=== PATIENT | female | born 1940 | race Caucasian/White ===

== ENCOUNTER 2016-12-24 07:41 | Outpatient (CLI) | payer MEDICARE, BC ==
[2016-12-24 08:27] LABS: #Basophils 0.1 thou/uL (0.0-0.2); #Eosinphils 0.2 thou/uL (0.0-0.7); #Monocytes 0.5 thou/uL (0.11-0.59); #Neutrophils 5.8 thou/uL (1.40-6.50); %Basophils 1.1 % (0.0-1.0); %Eosinophils 1.9 % (0.0-10.0); %Lymphocytes 23.3 % (21.0-51.0); %Monocytes 5.9 % (0.0-10.0); %Neutrophils 67.9 % (42.0-75.0); Hemoglobin 13.3 g/dL (12.0-16.0); Mean Corpuscular HGB CONC 34.1 g/dL (32.0-36.0); Mean Corpuscular Volume 93.7 fl (81.0-99.0); Mean Platelet Volume 7.6 fL (7.4-10.4); Platelet Count 405 thou/uL (130-400); RBC Distribution Width 10.4 % (11.5-14.5); Red Blood Cell (RBC) Count 4.15 mill/uL (4.20-5.40); White Blood Cell (WBC) Count 8.5 thou/uL (4.8-10.8)
[2016-12-24 08:48] LABS: ALT (SGPT) Less than 6 U/L (0-55); AST (SGOT) 14 U/L (5-34); Albumin 4.2 g/dL (3.4-4.8); Alkaline Phosphatase 62 U/L (40-150); Anion Gap 14 mmol/L (10-20); BUN (Urea Nitrogen) 10 mg/dL (9.8-20.1); Bilirubin, Direct 0.2 mg/dL (0.1-0.3); Bilirubin, Total 0.5 mg/dL (0.2-1.2); Calc. Creatinine Clearance 0 mL/min (70-130); Calcium 9.3 mg/dL (7.8-10.44); Carbon Dioxide 23 mmol/L (23-31); Cardiac Risk 3.1 (Less than 4.5); Chloride 102 mmol/L (98-107); Cholesterol 147 mg/dL (< 200 Desired); Estimated GFR-MDRD 72; Glucose 109 mg/dL (83-110); HDL Cholesterol 48 mg/dL (>60 Neg Risk); LDL Cholesterol, Calculated 78 mg/dL; Potassium 4.3 mmol/L (3.5-5.1); Protein, Total 6.5 g/dL (5.8-8.1); Sodium 135 mmol/L (136-145); Triglycerides 105 mg/dL (Less than 150)
== END 2016-12-24 07:42 ==
LOC: MADLABBHPM 07:41
PROVIDERS: ATTEND Family Medicine
DX: E78.00 Pure hypercholesterolemia, unspecified (principal); I69.90 Unspecified sequelae of unspecified cerebrovascular disease; I10 Essential (primary) hypertension
CPT/HCPCS: 36415; 80048; 80061; 80076; 85025

== ENCOUNTER 2017-09-29 08:43 | Emergency (ER) | payer MEDICARE, BC ==
--- NOTE | 2017-09-29 10:15 | CT ---
CT BRAIN WITHOUT CONTRAST: Indication: History of head injury. Comparison: None. FINDINGS: There is a left frontal scalp contusion. There are areas of encephalomalacia involving the left frontal lobe and left parietal lobe in a left MCA distribution. There is an additional area of encephalomalacia involving the anterior superior asp ect of the right frontal lobe. There is mild small vessel white matter ischemic change. There is ex v acuo dilatation of the left parietal ventricle. Septum pellucidum and third ventricle are midline. No definite acute hemorrhage or hydrocephalus is present. IMPRESSION: 1. Left frontal scalp contusion. 2. No acute intracranial abnormality. 3. 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 There is an additional area of encephalomalacia involving the anterior superior aspect of the right fronta l lobe. POS: [facility]
[2017-09-29 10:29] LABS: Bilirubin Negative (Negative); Blood, Urine Trace (Negative); Clarity Clear (Clear); Glucose, Urine (Dipstick) Negative (Negative); Leukocyte Trace (Negative); Nitrite Negative (Negative); Protein, Urine (Dipstick) 30 mg/dL (Neg-Trace); Specific Gravity, Urine 1.025 (1.005-1.030); Urobilinogen 0.2 mg/dL (0.2-1.0); pH, Urine 5.5 (5.0-9.0)
[2017-09-29 10:38] LABS: Bacteria/HPF Rare-Few HPF (None Seen); RBC/HPF 0-3 HPF (0-3); WBC/HPF 0-3 HPF (0-3)
[2017-09-29 10:47] LABS: ALT (SGPT) Less than 7 U/L (8-55); AST (SGOT) 15 U/L (5-34); Albumin 4.1 g/dL (3.4-4.8); Alkaline Phosphatase 73 U/L (40-150); Anion Gap 15 mmol/L (10-20); BUN (Urea Nitrogen) 17 mg/dL (9.8-20.1); Bilirubin, Total 0.5 mg/dL (0.2-1.2); Calc. Creatinine Clearance 0 mL/min (70-130); Calcium 9.3 mg/dL (7.8-10.44); Carbon Dioxide 23 mmol/L (23-31); Chloride 105 mmol/L (98-107); Estimated GFR-MDRD 79; Globulin 2.9 g/dL (2.4-3.5); Glucose 106 mg/dL (83-110); Potassium 4.7 mmol/L (3.5-5.1); Sodium 138 mmol/L (136-145)
[2017-09-29 10:51] LABS: PTT 23.6 SEC (22.9-36.1); Prothrombin Time 12.9 SEC (12.0-14.7)
[2017-09-29 10:56] LABS: CKMB 2.4 ng/mL (0-6.6); Magnesium 2.1 mg/dL (1.6-2.6); Troponin I Less than 0.010 ng/mL (< 0.028)
== END 2017-09-29 11:30 | disposition home or self-care (01) ==
LOC: MADERS 08:43
DX: S00.83XA Contusion of other part of head, initial encounter (principal); I10 Essential (primary) hypertension; G20 Parkinson's disease; Z86.73 Personal history of transient ischemic attack (TIA), and cerebral infarction without residual deficits; Z87.891 Personal history of nicotine dependence; Z79.899 Other long term (current) drug therapy; Z79.82 Long term (current) use of aspirin; W18.30XA Fall on same level, unspecified, initial encounter
CPT/HCPCS: 36416; 70450; 80053; 81003; 81015; 82553; 83735; 84484; 85610; 85730; 93005

== ENCOUNTER 2021-07-22 09:54 | Emergency (ER) | payer MEDICARE, BC ==
[2021-07-22 10:34] LABS: #Basophils 0.1 thou/uL (0.0-0.2); #Eosinphils 0.1 thou/uL (0.0-0.7); #Lymphocytes 1.8 thou/uL (1.20-3.40); #Monocytes 0.4 thou/uL (0.11-0.59); %Basophils 1.2 % (0.0-1.0); %Eosinophils 2.2 % (0.0-10.0); %Lymphocytes 27.6 % (21.0-51.0); %Monocytes 6.3 % (0.0-10.0); %Neutrophils 62.7 % (42.0-75.0); Hemoglobin 13.8 g/dL (12.0-16.0); Mean Corpuscular HGB CONC 32.7 g/dL (32.0-36.0); Mean Corpuscular Hemoglobin 29.4 pg (27.0-31.0); Mean Corpuscular Volume 90.1 fL (78.0-98.0); Mean Platelet Volume 8.1 fL (7.4-10.4); Platelet Count 354 thou/uL (130-400); RBC Distribution Width 11.4 % (11.5-14.5); Red Blood Cell (RBC) Count 4.69 mill/uL (4.20-5.40); White Blood Cell (WBC) Count 6.3 thou/uL (4.8-10.8)
[2021-07-22 10:47] LABS: ALT (SGPT) 11 U/L (8-55); AST (SGOT) 13 U/L (5-34); Albumin 3.8 g/dL (3.4-4.8); Alkaline Phosphatase 67 U/L (40-110); Anion Gap 11 mmol/L (10-20); BUN (Urea Nitrogen) 17 mg/dL (9.8-20.1); Bilirubin, Total 0.5 mg/dL (0.2-1.2); Calc. Creatinine Clearance 0 mL/min (70-130); Calcium 9.6 mg/dL (7.8-10.44); Carbon Dioxide 26 mmol/L (23-31); Chloride 107 mmol/L (98-107); Globulin 2.7 g/dL (2.4-3.5); Glucose 95 mg/dL (83-110); Potassium 4.1 mmol/L (3.5-5.1); Protein, Total 6.5 g/dL (5.8-8.1); Sodium 140 mmol/L (136-145)
== END 2021-07-22 12:15 | disposition home or self-care (01) ==
LOC: MADERS 09:54
DX: S73.101A Unspecified sprain of right hip, initial encounter (principal); R07.9 Chest pain, unspecified; R26.9 Unspecified abnormalities of gait and mobility; Z86.73 Personal history of transient ischemic attack (TIA), and cerebral infarction without residual deficits; Z79.82 Long term (current) use of aspirin; Z79.899 Other long term (current) drug therapy; W19.XXXA Unspecified fall, initial encounter
CPT/HCPCS: 71045; 72192; 80053; 85025

== ENCOUNTER 2021-10-23 08:39 | Emergency (ER) | payer MEDICARE, BC | END 2021-10-23 10:20 | disposition home or self-care (01) | LOC: MADERS 08:39 | DX: S51.011A Laceration without foreign body of right elbow, initial encounter (principal); S63.501A Unspecified sprain of right wrist, initial encounter; M19.041 Primary osteoarthritis, right hand; I10 Essential (primary) hypertension; Z86.73 Personal history of transient ischemic attack (TIA), and cerebral infarction without residual deficits; Z87.891 Personal history of nicotine dependence; W19.XXXA Unspecified fall, initial encounter ==